=== PATIENT | female | born 1960 | race Caucasian/White ===

== ENCOUNTER 2016-06-08 05:22 | Emergency (ER) ==
[2016-06-08 05:35] VITALS: BP 130/84; TEMP 99.3; BMI 40.1
[2016-06-08] MEDS ORDERED: XOPENEX 1.25 MG NEB STA (05:40)
[2016-06-08] MEDS ORDERED: DUONEB NEB STA (05:40)
[2016-06-08] MEDS ORDERED: DECADRON 4 MG/ML SDV IM STA (05:41)
--- NOTE | 2016-06-08 05:44 | ED.PDOC ---
General ED Provider: Dr. ALE OATES-ER Chief Complaint: Cough Stated Complaint: gloria had a sinus infection that has moved into my chest --i am coughing up yellow stuff Time Seen by Physician: 05:25 Mode of Arrival: Walk-In Information Source: Patient Exam Limitations: No limitations Primary Care Provider: KELLY DOBBS Nursing and Triage Documentation Reviewed and Agree: Yes Respiratory Complaint Exam - Respiratory Complaint/Exam Onset/Duration: 5-7 days Symptoms Are: Still present Timing: Intermittent Initial Severity: Mild Current Severity: Mild Location: Nose, Chest Character: Reports: Productive cough Aggravating: Reports: URI Alleviating: Reports: Spontaneous resolution Associated Signs and Symptoms: Reports: Wheezing, URI, Nasal congestion, Sinus discomfort, Sore throat. Denies: Rapid breathing, Dyspnea, Fever, Chills, Chest pain, Pleuritic chest pain, Hemoptysis, Dizziness, Calf pain, Calf swelling, Edema, Hoarseness, Vomiting, Weight loss, Decreased oral intake, Increased thirst, Increased appetite, Increased urination Related History: Reports: Similar episode History of Healthcare-Acquired Pneumonia: No Pseudomonas Risk Factors: Reports: None Tuberculosis Risk Factors: Reports: None Status Asthmaticus Risk Factors: Reports: None Home Oxygen Use: No Recent Stress Test: No Recent Echo/LV Function: No Current Antibiotic Use: No Current Asthma Medication Use: No Respiratory Distress: None Inadequate Respiratory Effort: No Dysphagia Present: No Stridor Present: No JVD Present: No Accessory Muscle Use: No Retractions: Not Present Diminished Breath Sounds: No Sinus Tenderness: None Grunting Respirations: No Kussmaul Respirations: No Differential Diagnoses: COPD Exacerbation, Pneumonia, Bronchitis Review of Systems - Review Of Systems Constitutional: Reports: No symptoms Eyes: Reports: No symptoms Ears, Nose, Mouth, Throat: Reports: Nose discharge Respiratory: Reports: Cough Cardiac: Reports: No symptoms GI: Reports: No symptoms : Reports: No symptoms Musculoskeletal: Reports: No symptoms Skin: Reports: No symptoms Neurological: Reports: No symptoms Endocrine: Reports: No symptoms Hematologic/Lymphatic: Reports: No symptoms All Other Systems: Reviewed and Negative Past Medical History - Past Medical History Endocrine: Reports: Unknown Cardiovascular: Reports: Unknown Respiratory: Reports: Unknown Hematological: Reports: Unknown Gastrointestinal: Reports: Unknown Genitourinary: Reports: Unknown Neuro/Psych: Reports: Unknown Musculoskeletal: Reports: Unknown Cancer: Reports: Unknown Last Menstrual Period: menopausal - Surgical History General Surgical History: Reports: Unknown - Family History Family History: Reports: Unknown - Social History Smoking Status: Never smoker Hx Substance Use: No Alcohol Screening: Occasionally Lives: With family - Immunizations Tetanus Shot up to Date: Yes Physical Exam - Physical Exam Appearance: Well-appearing, No pain distress, Well-nourished Eyes: ROXANN, EOMI, Conjunctiva clear ENT: Rhinorrhea Neck: Supple Respiratory: Rhonchi, Wheezes Cardiovascular: RRR, Pulses normal, No rub, No murmur GI/: Soft, Nontender, No masses, Bowel sounds normal, No Organomegaly Musculoskeletal: Normal strength, ROM intact, No edema, No calf tenderness Skin: Warm Neurological: Sensation intact Psychiatric: Affect appropriate Interpretation - Radiology Interpretation Radiology Interpretation By: ED Physician Radiology Results: Negative Exam Interpreted: CXR Re-Evaluation - Re-Evaluation Time of Re-Evaluation: 06:24 Status: Improved Vital Signs Stable: Yes Pain Level: 0 Appearance: NAD Lungs: Clear Skin: Warm and Dry Neuro: Alert and Oriented X3 CV: RRR Critical Care Note - Critical Care Note Total Time (mins): 0 Course - Course Orders, Labs, Meds: Orders Category Date Time Status NEBULIZER TREATMENT Stat CARDIO 06/08/16 05:40 Completed Dexamethasone 4 mg/ml Inj [Decadron 4 mg/ml Sdv] MEDS 06/08/16 05:41 Discontinued 8 mg IM ONCE STA Ipratropium/Albuterol Neb [Duoneb] MEDS 06/08/16 05:40 Discontinued 1 vial NEB ONCE STA Levalbuterol HCl [Xopenex 1.25 mg] MEDS 06/08/16 05:40 Discontinued 1 vial NEB ONCE STA CXR [CHEST, 2 VIEWS PA & LAT] Stat RADS 06/08/16 05:41 Taken Medications Discontinued Medications Generic Name Dose Route Start Last Admin Trade Name Freq PRN Reason Stop Dose Admin Albuterol/Ipratropium 1 vial 06/08/16 05:40 06/08/16 05:45 Duoneb NEB 06/08/16 05:41 1 vial ONCE STA Administration Dexamethasone Sodium Phosphate 8 mg 06/08/16 05:41 06/08/16 06:07 Decadron 4 Mg/Ml Sdv IM 06/08/16 05:42 8 mg ONCE STA Administration Levalbuterol HCl 1 vial 06/08/16 05:40 06/08/16 05:55 Xopenex 1.25 Mg NEB 06/08/16 05:41 1 vial ONCE STA Administration Vital Signs: Temp Pulse Resp BP Pulse Ox 06/08/16 05:23 99.3 F 79 20 130/84 94 L Departure - Departure Time of Disposition: 06:24 Disposition: HOME SELF-CARE Discharge Problem: Bronchitis Sinusitis Qualifiers: Sinusitis location: unspecified location Chronicity: acute Recurrence: not specified as recurrent Qualifier Code: (J01.90) Acute sinusitis, unspecified Instructions: Sinusitis (ED) Condition: Good Pt referred to PMD for follow-up: Yes Additional Instructions: biaxin 500mg bid x 10 days--astelin nasal spray two puff each nostril bid...flonase nasal spray one puff each nostril bid ...prednisone 20mg x 2 days then 10mg x 2 days then 5mg x 2 days..use your inhaler at home Allergies/Adverse Reactions: Allergies Sulfa (Sulfonamide Antibiotics) Adverse Reaction (Verified 06/08/16 05:34) Home Medications: Ambulatory Orders Alendronate Sodium [Fosamax] 70 mg PO WEEKLY 06/08/16 Azelastine HCl [Astelin 0.1%] 1 spray NS BID PRN 06/08/16 Calcium Carbonate/Vitamin D3 [Calcium 500 + Vit D 200 mg Tablet] 1 tab PO DAILY 06/08/16 Cholecalciferol (Vitamin D3) [Vitamin D] 1,000 unit PO DAILY 06/08/16 Citalopram Hydrobromide [Citalopram HBr] 10 mg PO DAILY 06/08/16 Levocetirizine Dihydrochloride [Xyzal] 5 mg pe PO BEDTIME 06/08/16 Levothyroxine Sodium [Synthroid] 125 mcg PO DAILY 06/08/16 Magnesium Oxide/Mag Aa Chelate [Magnesium 300 mg Capsule] 300 mg PO DAILY Melatonin 1 mg PO BEDTIME PRN 06/08/16 Montelukast Sodium [Singulair] 10 mg PO BEDTIME 06/08/16 Multivitamin 1 cap PO DAILY 06/08/16 Naproxen [Naprosyn] 500 mg PO Q12H PRN 06/08/16 Propranolol HCl 80 mg PO DAILY 06/08/16 Simvastatin 20 mg PO BEDTIME 06/08/16 Trazodone HCl 50 mg PO BEDTIME 06/08/16 Vitamin D3/Vitamin K2 (Mk4) [K2 Plus D3 Tablet] 1 tab PO DAILY 06/08/16 Disposition Discussed With: Patient, Family
--- NOTE | 2016-06-08 06:30 | DI ---
EXAM: Chest two views HISTORY: Cough FINDINGS: Normal cardiac and mediastinal contours. Normal pulmonary vasculature. Lungs are clear. No significant abnormality of the bony thorax. IMPRESSION: Chest radiograph within normal limits.
== END 2016-06-08 06:41 | disposition home or self-care (01) ==
LOC: ED 05:22
DX: J40 Bronchitis, not specified as acute or chronic (principal); J01.90 Acute sinusitis, unspecified
CPT/HCPCS: 94640; 96372; 99282

== ENCOUNTER 2016-11-18 16:27 | Outpatient (CLI) ==
[2016-11-18 16:48] LABS: BILIRUBIN,URINE Negative (NEGATIVE); KETONES,URINE Negative (NEGATIVE); LEUKOCYTE ESTERASE ,URINE Trace (NEGATIVE); NITRITE,URINE Negative (NEGATIVE); PROTEIN,URINE Negative (NEGATIVE); URINE, BLOOD 2+ (NEGATIVE)
[2016-11-18 16:51] LABS: ADD URINE MICROSCOPIC YES
--- NOTE | 2016-11-18 16:56 | DI ---
EXAM: KUB. History: Left abdominal pain. Comparison: Abdominal radiograph 08/13/2011 Findings: Nonspecific but nonobstructive bowel gas pattern. No free intraperitoneal air. Scattere d colonic stool. 1 cm x 0.4 cm calcification projecting over the left renal shadow. The right lissett l shadow is obscured due to bowel gas. No acute osseous abnormalities. Degenerative changes within lower lumbar spine. Impression: Left nephrolithiasis.
== END 2016-11-18 16:28 | disposition home or self-care (01) ==
LOC: RAD 16:27
PROVIDERS: ATTEND Internal Medicine
DX: R10.9 Unspecified abdominal pain (principal); R11.0 Nausea; R31.9 Hematuria, unspecified; Z87.442 Personal history of urinary calculi
CPT/HCPCS: 81001